=== PATIENT | female | born 1980 | race Caucasian/White ===

== ENCOUNTER 2021-01-28 20:01 | Inpatient (IN) | payer OTHER ==
[~2021-01-28] VITALS: Ht 170.2 cm
[2021-01-28] MEDS ORDERED: FLECAINIDE ACE100 MG (20:29)
[2021-01-28] MEDS ORDERED: ZYRTEC10 M3 (20:29)
[2021-01-28] MEDS ORDERED: XARELTO10 MG (20:30)
[2021-01-28] MEDS ORDERED: OMEPRAZOLE MAGN20 MG (20:30)
[2021-01-28] MEDS ORDERED: CLONAZEPAM2 MG (20:30)
[2021-01-28] MEDS ORDERED: TAGAMET HB200 MG (20:30)
[2021-01-28] MEDS ORDERED: SINGULAIR10 MG (20:31)
[2021-01-28] MEDS ORDERED: PERCOCET 5-3251 EACH (20:31)
[2021-01-28] MEDS ORDERED: NEURONTIN800 MG ×2 (20:31→20:32)
[2021-02-02] MEDS ORDERED: GABAPENTIN800 M1 (13:09)
[2021-02-02] MEDS ORDERED: [UNRECOGNIZED DRUG - OTHER] (13:09)
[2021-02-02] MEDS ORDERED: OMEPRAZOLE40 MG (13:10)
[2021-02-02] MEDS ORDERED: VASOTEC20 MG (13:10)
[2021-02-02] MEDS ORDERED: DILTIAZEM HCL30 MG (13:10)
[2021-02-02] MEDS ORDERED: TAGAMET400 MG PO (13:12)
[2021-02-02] MEDS ORDERED: XARELTO20 MG (13:13)
[2021-02-04] MEDS ORDERED: DECADRON4 MG PO (11:06)
[2021-02-04] MEDS ORDERED: PROTONIX40 MG PO (11:07)
== END 2021-02-04 13:20 | disposition home or self-care (01) | DRG 202 ==
LOC: ER 20:01 → MEDI 01-29 17:04
PROVIDERS: ADMIT Internal Medicine; ATTEND Internal Medicine
PROC: 3E0F73Z Introduction of Anti-inflammatory into Respiratory Tract, Via Natural or Artificial Opening (ICD-10-PCS; 2021-01-29)
PROC: B24BYZZ Ultrasonography of Heart with Aorta using Other Contrast (ICD-10-PCS; 2021-01-29)
PROC: BW24ZZZ Computerized Tomography (CT Scan) of Chest and Abdomen (ICD-10-PCS; 2021-01-29)
PROC: 4A12X4Z Monitoring of Cardiac Electrical Activity, External Approach (ICD-10-PCS; principal; 2021-01-30)
PROC: 3E0F7SF Introduction of Other Gas into Respiratory Tract, Via Natural or Artificial Opening (ICD-10-PCS; 2021-01-30)
DX: J45.901 Unspecified asthma with (acute) exacerbation (principal); I48.20 Chronic atrial fibrillation, unspecified; J45.902 Unspecified asthma with status asthmaticus; F32.9 Major depressive disorder, single episode, unspecified; F41.8 Other specified anxiety disorders; I10 Essential (primary) hypertension; Z20.822 Contact with and (suspected) exposure to COVID-19; Z79.01 Long term (current) use of anticoagulants; Z95.0 Presence of cardiac pacemaker

== ENCOUNTER 2021-02-25 13:21 | Outpatient (CLI) | payer OTHER ==
[~2021-02-25 13:21] MED LIST: CLONAZEPAM2 MG; DECADRON4 MG PO; DILTIAZEM HCL30 MG; FLECAINIDE ACE100 MG; GABAPENTIN800 M1; NEURONTIN800 MG; OMEPRAZOLE MAGN20 MG; OMEPRAZOLE40 MG; PERCOCET 5-3251 EACH; PROTONIX40 MG PO; SINGULAIR10 MG; TAGAMET HB200 MG; TAGAMET400 MG PO; VASOTEC20 MG; XARELTO10 MG; XARELTO20 MG; ZYRTEC10 M3; [UNRECOGNIZED DRUG - OTHER]
== END 2021-02-25 14:00 | disposition home or self-care (01) ==
LOC: OFIC 805 13:21
PROVIDERS: ATTEND Otolaryngology Otology & Neurotology
DX: R06.1 Stridor (principal); J45.902 Unspecified asthma with status asthmaticus